=== PATIENT | male | born 1995 | race Asian ===

== ENCOUNTER 2017-09-04 12:52 | Inpatient (IN) | payer OTHER ==
[2017-09-04] MEDS ORDERED: IOHEXOL 350 MG/ML 10 ML VIAL (for RAD DIAG) IVCONTRAST ONE (12:53)
[2017-09-04 13:17] VITALS: BP 130/58; PULSE 116; RESP 16; TEMP 99.4; O2SAT 99
[2017-09-04 15:59] LABS: AUTOMATED NEUTROPHIL # 7.9 TH/MM3 (1.8-7.7); BASOPHIL # 0.1 TH/MM3 (0-0.2); BASOPHIL % 0.9 % (0.0-2.0); EOSINOPHIL # 0.3 TH/MM3 (0-0.4); EOSINOPHIL % 2.2 % (0.0-4.0); HEMATOCRIT 39.9 % (39.0-51.0); HEMOGLOBIN 12.8 GM/DL (13.0-17.0); LYMPHOCYTE # 2.2 TH/MM3 (1.0-4.8); MEAN CORPUSCULAR HEMOGLOBIN 24.4 PG (27.0-34.0); MEAN CORPUSCULAR HGB CONC 32.1 % (32.0-36.0); MEAN PLATELET VOLUME 7.8 FL (7.0-11.0); MONO % 8.7 % (0.0-8.0); NEUT % 69.2 % (16.0-70.0); PLATELET COUNT 361 TH/MM3 (150-450); RED BLOOD COUNT 5.26 MIL/MM3 (4.50-5.90); RED CELL DISTRIBUTION WIDTH 16.5 % (11.6-17.2); WHITE BLOOD COUNT 11.5 TH/MM3 (4.0-11.0)
[2017-09-04 16:12] LABS: BILIRUBIN, URINE NEG (NEG); BLOOD, URINE NEG (NEG); GLUCOSE,URINE NEG (NEG); KETONE, URINE NEG (NEG); NITRITE,URINE NEG (NEG); SQUAMOUS EPITHELIAL CELL URINE <1 /hpf (0-5); URINE COLOR YELLOW (YELLW/STRAW); URINE LEUKOCYTE ESTERASE NEG (NEG)
[2017-09-04 16:21] LABS: ALBUMIN 3.1 GM/DL (3.4-5.0); AST (GOT) 14 U/L (15-37); BICARBONATE 28.5 MEQ/L (21.0-32.0); BLOOD UREA NITROGEN 11 MG/DL (7-18); CALCIUM 9.2 MG/DL (8.5-10.1); CHLORIDE 101 MEQ/L (98-107); CREATININE 1.03 MG/DL (0.60-1.30); GLOMERULAR FILTRATION RATE 89 ML/MIN (>89); GLUCOSE,RANDOM 82 MG/DL (74-106); SODIUM (NA) 137 MEQ/L (136-145)
[2017-09-04 16:24] LABS: ALKALINE PHOSPHATASE 82 U/L (45-117); ALT (GPT) 13 U/L (12-78); TOTAL BILIRUBIN ADULT 1.2 MG/DL (0.2-1.0); TOTAL PROTEIN 9.7 GM/DL (6.4-8.2)
[2017-09-04] MEDS ORDERED: SODIUM CHLOR 0.9% 1000 ML INJ 1,000 ML IV ONE (18:00)
[2017-09-04] MEDS ORDERED: ONDANSETRON HCL 4 MG/2 ML VIAL IV PUSH ONE (18:00)
[2017-09-04] MEDS ORDERED: KETOROLAC TROMETHAMINE 30 MG/ML (IVP) VIAL IV PUSH ONE (18:00)
[2017-09-04] MEDS ORDERED: MORPHINE SULFATE 2 MG/ML INJ IV PUSH ONE (18:00)
--- NOTE | 2017-09-04 18:10 | PD ---
HPI Chief Complaint: Abdominal Pain Time Seen by Provider: 17:54 Travel History International Travel<30 days: No Contact w/Intl Traveler<30days: No Traveled to known affect area: No History of Present Illness HPI The patient is a 22-year-old male who presents emergency department for right lower quadrant abdominal pain. The patient states the pain started yesterday, initially was intermittent, now is constant with palpation and certain types of movement. The patient states if he holds still the pain will resolve. He denies any nausea, vomiting, anorexia, or diarrhea. The pain is located right lower quadrant, moderate, nonradiating, worse with palpation. The patient's last meal was this morning, breakfast. He denies any previous history of abdominal surgeries. The patient denies any dysuria, frequency, urgency, or hematuria. FORMERLY [facility] Past Medical History Medical History: Denies Significant Hx Past Surgical History Other Surgery: Yes (FISSURES IN RECTUM) Social History Alcohol Use: No Tobacco Use: No Substance Use: No Allergies-Medications (Allergen,Severity, Reaction): Coded Allergies: No Known Allergies (Unverified , 09/04/17) Reported Meds & Prescriptions Reported Meds & Active Scripts Active No Active Prescriptions or Reported Medications Review of Systems Except as stated in HPI: all other systems reviewed are Neg General / Constitutional: No: Fever HENT: No: Headaches Cardiovascular: No: Chest Pain or Discomfort Respiratory: No: Shortness of Breath Gastrointestinal: Positive: Abdominal Pain, No: Nausea, Vomiting, Diarrhea, Constipation, Loss of Appetite Genitourinary: No: Dysuria, Hematuria Musculoskeletal: No: Myalgias Physical Exam Narrative GENERAL: Awake, alert, 22 old male who appears his stated age and is in no acute respiratory distress. SKIN: Focused skin assessment warm/dry. HEAD: Atraumatic. Normocephalic. EYES: No injection or drainage. ENT: No nasal bleeding or discharge. Mucous membranes pink and moist. NECK: Trachea midline. No JVD. CARDIOVASCULAR: Regular rate and rhythm. No murmur appreciated. RESPIRATORY: No accessory muscle use. Clear to auscultation. Breath sounds equal bilaterally. GASTROINTESTINAL: Abdomen soft, tender to palpation right lower quadrant. Positive McBurney's. Patient was unable to hop on the right leg. Negative obturator. Negative Rovsing. MUSCULOSKELETAL: No obvious deformities. No clubbing. No cyanosis. No edema. NEUROLOGICAL: Awake and alert. No obvious cranial nerve deficits. Motor grossly within normal limits. Normal speech. PSYCHIATRIC: Appropriate mood and affect; insight and judgment normal. Data Data Last Documented VS Vital Signs Date Time Temp Pulse Resp B/P (MAP) Pulse Ox O2 Delivery O2 Flow Rate FiO2 09/04/17 13:17 99.4 116 16 130/58 (82) 99 Orders Orders Complete Blood Count With Diff (09/04/17 13:18) Comprehensive Metabolic Panel (09/04/17 13:18) Lipase (09/04/17 13:18) Urinalysis - C+S If Indicated (09/04/17 13:18) Ct Abd/Pel W Iv Contrast(Rout) (09/04/17 ) Ketorolac Inj (Toradol Inj) (09/04/17 18:00) Morphine Inj (Morphine Inj) (09/04/17 18:00) Ondansetron Inj (Zofran Inj) (09/04/17 18:00) Sodium Chlor 0.9% 1000 Ml Inj (Ns 1000 M (09/04/17 18:00) NPO (09/04/17 17:58) Oral Contrast - Adult (09/04/17 18:18) Diatrizoate Liq ( Gastroview Liq) (09/04/17 18:21) Iohexol 350 Inj (Omnipaque 350 Inj) (09/04/17 12:53) Piperacil-Tazo 4.5 Gm Premix (Zosyn 4.5 (09/04/17 21:00) Admit Order (Ed Use Only) (09/04/17 21:33) Admit To Inpatient (09/04/17 ) Vital Signs (Adult) Q4H (09/04/17 21:34) Activity Oob Ad Catherine (09/04/17 21:34) Air Conditioning Unit Assembler / Telemetry .CONTINUOUS (09/04/17 21:34) Diet Npo (09/05/17 Breakfast) Sodium Chlor 0.9% 1000 Ml Inj (Ns 1000 M (09/04/17 21:34) Sodium Chloride 0.9% Flush (Ns Flush) (09/04/17 21:45) Sodium Chloride 0.9% Flush (Ns Flush) (09/05/17 09:00) Ondansetron Inj (Zofran Inj) (09/04/17 21:45) Basic Metabolic Panel (Bmp) (09/05/17 06:00) Complete Blood Count With Diff (09/05/17 06:00) Case Management Consult (09/04/17 21:34) Naloxone Inj (Narcan Inj) (09/04/17 21:45) Inpatient Certification (09/04/17 ) Labs Laboratory Tests Test 09/04/17 15:01 White Blood Count 11.5 TH/MM3 Red Blood Count 5.26 MIL/MM3 Hemoglobin 12.8 GM/DL Hematocrit 39.9 % Mean Corpuscular Volume 76.0 FL Mean Corpuscular Hemoglobin 24.4 PG Mean Corpuscular Hemoglobin Concent 32.1 % Red Cell Distribution Width 16.5 % Platelet Count 361 TH/MM3 Mean Platelet Volume 7.8 FL Neutrophils (%) (Auto) 69.2 % Lymphocytes (%) (Auto) 19.0 % Monocytes (%) (Auto) 8.7 % Eosinophils (%) (Auto) 2.2 % Basophils (%) (Auto) 0.9 % Neutrophils # (Auto) 7.9 TH/MM3 Lymphocytes # (Auto) 2.2 TH/MM3 Monocytes # (Auto) 1.0 TH/MM3 Eosinophils # (Auto) 0.3 TH/MM3 Basophils # (Auto) 0.1 TH/MM3 CBC Comment DIFF FINAL Differential Comment Urine Color YELLOW Urine Turbidity CLEAR Urine pH 6.0 Urine Specific [place] 1.010 Urine Protein NEG mg/dL Urine Glucose (UA) NEG mg/dL Urine Ketones NEG mg/dL Urine Occult Blood NEG Urine Nitrite NEG Urine Bilirubin NEG Urine Urobilinogen LESS THAN 2.0 MG/DL Urine Leukocyte Esterase NEG Urine WBC LESS THAN 1 /hpf Urine Squamous Epithelial Cells <1 /hpf Microscopic Urinalysis Comment CULT NOT INDICATED Blood Urea Nitrogen 11 MG/DL Creatinine 1.03 MG/DL Random Glucose 82 MG/DL Total Protein 9.7 GM/DL Albumin 3.1 GM/DL Calcium Level 9.2 MG/DL Alkaline Phosphatase 82 U/L Aspartate Amino Transf (AST/SGOT) 14 U/L Alanine Aminotransferase (ALT/SGPT) 13 U/L Total Bilirubin 1.2 MG/DL Sodium Level 137 MEQ/L Potassium Level 3.7 MEQ/L Chloride Level 101 MEQ/L Carbon Dioxide Level 28.5 MEQ/L Anion Gap 8 MEQ/L Estimat Glomerular Filtration Rate 89 ML/MIN Lipase 57 U/L [facility] Medical Decision Making Medical Screen Exam Complete: Yes Emergency Medical Condition: Yes Medical Record Reviewed: Yes Interpretation(s) Laboratory Tests Test 09/04/17 15:01 White Blood Count 11.5 TH/MM3 Red Blood Count 5.26 MIL/MM3 Hemoglobin 12.8 GM/DL Hematocrit 39.9 % Mean Corpuscular Volume 76.0 FL Mean Corpuscular Hemoglobin 24.4 PG Mean Corpuscular Hemoglobin Concent 32.1 % Red Cell Distribution Width 16.5 % Platelet Count 361 TH/MM3 Mean Platelet Volume 7.8 FL Neutrophils (%) (Auto) 69.2 % Lymphocytes (%) (Auto) 19.0 % Monocytes (%) (Auto) 8.7 % Eosinophils (%) (Auto) 2.2 % Basophils (%) (Auto) 0.9 % Neutrophils # (Auto) 7.9 TH/MM3 Lymphocytes # (Auto) 2.2 TH/MM3 Monocytes # (Auto) 1.0 TH/MM3 Eosinophils # (Auto) 0.3 TH/MM3 Basophils # (Auto) 0.1 TH/MM3 CBC Comment DIFF FINAL Differential Comment Urine Color YELLOW Urine Turbidity CLEAR Urine pH 6.0 Urine Specific [place] 1.010 Urine Protein NEG mg/dL Urine Glucose (UA) NEG mg/dL Urine Ketones NEG mg/dL Urine Occult Blood NEG Urine Nitrite NEG Urine Bilirubin NEG Urine Urobilinogen LESS THAN 2.0 MG/DL Urine Leukocyte Esterase NEG Urine WBC LESS THAN 1 /hpf Urine Squamous Epithelial Cells <1 /hpf Microscopic Urinalysis Comment CULT NOT INDICATED Blood Urea Nitrogen 11 MG/DL Creatinine 1.03 MG/DL Random Glucose 82 MG/DL Total Protein 9.7 GM/DL Albumin 3.1 GM/DL Calcium Level 9.2 MG/DL Alkaline Phosphatase 82 U/L Aspartate Amino Transf (AST/SGOT) 14 U/L Alanine Aminotransferase (ALT/SGPT) 13 U/L Total Bilirubin 1.2 MG/DL Sodium Level 137 MEQ/L Potassium Level 3.7 MEQ/L Chloride Level 101 MEQ/L Carbon Dioxide Level 28.5 MEQ/L Anion Gap 8 MEQ/L Estimat Glomerular Filtration Rate 89 ML/MIN Lipase 57 U/L Last Impressions Abdomen/Pelvis CT 09/04/17 0000 Signed Impressions: Service Date/Time: Monday, September 04, 2017 19:58 - CONCLUSION: 1. Markedly abnormal inflammatory change in the right lower quadrant associated with a 4 cm abscess/phlegmonous mass and associated thickening and inflammatory change around the cecum and terminal ileum. Differential diagnosis includes a appendicitis with appendiceal abscess or possibly localized perforation versus complicated distal terminal ileum Crohn's disease and associated abscess. I would favor perforated appendicitis. Rico Gonzales MD Differential Diagnosis Differential diagnosis includes appendicitis, mesenteric lymphadenitis, constipation, diverticulitis, nephrolithiasis, pyelonephritis, muscle strain. Narrative Course IV was established, labs are drawn and sent, the patient was placed on cardiac telemetry monitoring and continuous pulse oximetry monitoring. CT of the abdomen and pelvis with oral and IV contrast was ordered. The patient was administered Toradol, morphine, Zofran, and IV fluids. The patient was kept nothing by mouth in the emergency department. Patient's white count is mildly elevated. Temperature is 99.3. CT reveals possible perforated appendicitis with abscess versus inflammatory changes from Crohn's disease. The patient was administered Zosyn 4.5 g intravenously. The on-call medical service was paged for admission. The patient may need evaluation by interventional radiology to place a drain if the abscess is large enough. Physician Communication Physician Communication The on-call medical service was paged for admission. I discussed the patient with Dr. Rodgers who agrees with admission. Diagnosis Primary Impression: Acute appendicitis with perforation and peritoneal abscess Admitting Information Admitting Physician Requests: Admit Scripts No Active Prescriptions or Reported Meds Condition: Stable Faheem Foley MD Sep 04, 2017 18:10
[2017-09-04] MEDS ORDERED: DIATRIZOATE MEGLUM/DIATRIZOATE SOD 9 ML CUP ONE (18:21)
--- NOTE | 2017-09-04 20:36 | RADRPT ---
EXAM DATE/TIME: 09/04/2017 19:58 [facility] COMPARISON: No previous studies available for comparison. INDICATIONS : Right lower quadrant pain. IV CONTRAST: 96 cc Omnipaque 350 (iohexol) IV ORAL CONTRAST: Prescribed oral contrast ingested. RADIATION DOSE: 4.52 CTDIvol (mGy) MEDICAL HISTORY : None SURGICAL HISTORY : None. ENCOUNTER: Initial ACUITY: 1 day PAIN SCALE: 6/10 LOCATION: cranial TECHNIQUE: Volumetric scanning of the abdomen and pelvis was performed. Using automated exposure control and ad justment of the mA and/or kV according to patient size, radiation dose was kept as low as reasonably achievable to obtain optimal diagnostic quality images. DICOM format image data is available electro nically for review and comparison. FINDINGS: There is extensive abnormal inflammatory change in the right lower quadrant around the cecum, termina l ileum and expected location of the appendix. There is a 4 cm x 3 cm phlegmonous mass/abscess in the right lower quadrant. This process cannot be from the appendix. Differential diagnosis inc ludes appendicitis with associated appendiceal abscess. Cannot exclude a distal terminal ileum Crohn' s disease associated with abscess. There is no bowel obstruction. There is no free intraperitoneal air. No acute findings in the liver, spleen, adrenals, kidneys or pancreas. CONCLUSION: 1. Markedly abnormal inflammatory change in the right lower quadrant associated with a 4 cm abscess/p hlegmonous mass and associated thickening and inflammatory change around the cecum and terminal ileum . Differential diagnosis includes a appendicitis with appendiceal abscess or possibly localized perfo ration versus complicated distal terminal ileum Crohn's disease and associated abscess. I would favor perforated appendicitis. Rico Gonzales MD on September 04, 2017 at 20:29 Board Certified Radiologist. This report was verified electronically.
[2017-09-04] MEDS ORDERED: PIPERACIL-TAZO 4.5 GM PREMIX 100 ML IV ONE (21:00)
[2017-09-04] MEDS ORDERED: SODIUM CHLORIDE 0.9% FLUSH 10 ML FLUSH IV FLUSH PRN (21:45)
[2017-09-04] MEDS ORDERED: ONDANSETRON HCL 4 MG/2 ML VIAL IVP PRN (21:45)
[2017-09-04] MEDS ORDERED: NALOXONE HCL 0.4 MG/ML AMP IV PUSH PRN (21:45)
[2017-09-04] MEDS: SODIUM CHLOR 0.9% 1000 ML INJ 1,000 ML IV SCH (22:01)
[2017-09-05] VITALS (9 sets, daily range): BP systolic 102–122; BP diastolic 55–81; PULSE 66–107; RESP 16–20; TEMP 97.2–99; O2SAT 98–100
[2017-09-05] MEDS: PIPERACIL-TAZO 4.5 GM PREMIX 100 ML IV SCH ×4 (03:00→21:32)
[2017-09-05 05:46] LABS: AUTOMATED NEUTROPHIL # 7.2 TH/MM3 (1.8-7.7); BASOPHIL # 0.1 TH/MM3 (0-0.2); BASOPHIL % 1.1 % (0.0-2.0); EOSINOPHIL # 0.4 TH/MM3 (0-0.4); EOSINOPHIL % 3.8 % (0.0-4.0); HEMATOCRIT 34.8 % (39.0-51.0); HEMOGLOBIN 11.2 GM/DL (13.0-17.0); LYMPH % 14.3 % (9.0-44.0); LYMPHOCYTE # 1.5 TH/MM3 (1.0-4.8); MEAN CELL VOLUME 75.1 FL (80.0-100.0); MEAN CORPUSCULAR HEMOGLOBIN 24.2 PG (27.0-34.0); MEAN CORPUSCULAR HGB CONC 32.2 % (32.0-36.0); MEAN PLATELET VOLUME 7.3 FL (7.0-11.0); NEUT % 70.8 % (16.0-70.0); PLATELET COUNT 274 TH/MM3 (150-450); RED BLOOD COUNT 4.63 MIL/MM3 (4.50-5.90); RED CELL DISTRIBUTION WIDTH 16.4 % (11.6-17.2); WHITE BLOOD COUNT 10.2 TH/MM3 (4.0-11.0)
[2017-09-05 06:20] LABS: BICARBONATE 25.3 MEQ/L (21.0-32.0); CALCIUM 8.1 MG/DL (8.5-10.1); CREATININE 0.91 MG/DL (0.60-1.30)
[2017-09-05] MEDS: SODIUM CHLOR 0.9% 1000 ML INJ 1,000 ML IV SCH ×2 (07:40→17:21)
--- NOTE | 2017-09-05 08:26 | HHI.HP ---
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 The pain started 2 days ago and was intermittent. It became constant and he went [facility]. He was referred to the emergency department for further evaluation. He states that if he remains still, there is no pain. The pain worsens with movement. He denies fever, chills, night sweats. Denies nausea, vomiting, diarrhea, constipation. Review of Systems Constitutional: DENIES: Fever, Chills, Night Sweats Eyes: DENIES: Blurred vision, Vision loss Ears, nose, mouth, throat: DENIES: Hearing loss Respiratory: DENIES: Cough, Wheezing, Sputum production, Shortness of breath Cardiovascular: DENIES: Chest pain, Palpitations, Dyspnea on Exertion, Lower Extremity Edema Gastrointestinal: COMPLAINS OF: Abdominal pain, DENIES: Constipation, Diarrhea , Nausea, Vomiting Genitourinary: DENIES: Urinary frequency, Urinary incontinence, Urgency, Hematuria, Dysuria, Nocturia Musculoskeletal: DENIES: Joint pain, Muscle aches Integumentary: DENIES: Pruritus, Rash Hematologic/lymphatic: DENIES: Bruising Neurologic: DENIES: Headache Past Family Social History Past Medical History Denies Past Surgical History Rectal surgery for fissures Reported Medications None Allergies: Coded Allergies: No Known Allergies (Unverified , 09/04/17) Family History The patient denies family medical history including diabetes, cancer, heart disease. Social History Denies alcohol, tobacco, or illicit drug use. Physical Exam Vital Signs Vital Signs Date Time Temp Pulse Resp B/P (MAP) Pulse Ox O2 Delivery O2 Flow Rate FiO2 09/05/17 07:40 16 09/05/17 07:40 99.0 107 16 114/55 (74) 100 Room Air 09/05/17 00:06 69 16 102/56 (71) 98 09/04/17 13:17 99.4 116 16 130/58 (82) 99 Physical Exam GENERAL: This is a well-nourished, well-developed patient, in no apparent distress. SKIN: No rashes, ecchymoses or lesions. Cool and dry. HEAD: Atraumatic. Normocephalic. No temporal or scalp tenderness. EYES: Pupils equal round and reactive. Extraocular motions intact. No scleral icterus. No injection or drainage. ENT: Throat without erythema, tonsillar hypertrophy or exudate. Uvula midline. Airway patent. NECK: Trachea midline. No JVD or lymphadenopathy. Supple, nontender, no meningeal signs. CARDIOVASCULAR: Regular rate and rhythm without murmurs, gallops, or rubs. RESPIRATORY: Clear to auscultation. Breath sounds equal bilaterally. No wheezes , rales, or rhonchi. GASTROINTESTINAL: Abdomen soft, nondistended. Tenderness to palpation in the right lower quadrant without rebound or guarding. MUSCULOSKELETAL: Extremities without clubbing, cyanosis, or edema. No joint tenderness, effusion, or edema noted. No calf tenderness. NEUROLOGICAL: Awake and alert. Motor and sensory grossly within normal limits. Normal speech. Laboratory Laboratory Tests Test 09/04/17 15:01 09/05/17 05:25 White Blood Count 11.5 10.2 Red Blood Count 5.26 4.63 Hemoglobin 12.8 11.2 Hematocrit 39.9 34.8 Mean Corpuscular Volume 76.0 75.1 Mean Corpuscular Hemoglobin 24.4 24.2 Mean Corpuscular Hemoglobin Concent 32.1 32.2 Red Cell Distribution Width 16.5 16.4 Platelet Count 361 274 Mean Platelet Volume 7.8 7.3 Neutrophils (%) (Auto) 69.2 70.8 Lymphocytes (%) (Auto) 19.0 14.3 Monocytes (%) (Auto) 8.7 10.0 Eosinophils (%) (Auto) 2.2 3.8 Basophils (%) (Auto) 0.9 1.1 Neutrophils # (Auto) 7.9 7.2 Lymphocytes # (Auto) 2.2 1.5 Monocytes # (Auto) 1.0 1.0 Eosinophils # (Auto) 0.3 0.4 Basophils # (Auto) 0.1 0.1 CBC Comment DIFF FINAL DIFF FINAL Differential Comment Urine Color YELLOW Urine Turbidity CLEAR Urine pH 6.0 Urine Specific [place] 1.010 Urine Protein NEG Urine Glucose (UA) NEG Urine Ketones NEG Urine Occult Blood NEG Urine Nitrite NEG Urine Bilirubin NEG Urine Urobilinogen LESS THAN 2.0 Urine Leukocyte Esterase NEG Urine WBC LESS THAN 1 Urine Squamous Epithelial Cells <1 Microscopic Urinalysis Comment CULT NOT INDICATED Blood Urea Nitrogen 11 10 Creatinine 1.03 0.91 Random Glucose 82 75 Total Protein 9.7 Albumin 3.1 Calcium Level 9.2 8.1 Alkaline Phosphatase 82 Aspartate Amino Transf (AST/SGOT) 14 Alanine Aminotransferase (ALT/SGPT) 13 Total Bilirubin 1.2 Sodium Level 137 139 Potassium Level 3.7 4.0 Chloride Level 101 105 Carbon Dioxide Level 28.5 25.3 Anion Gap 8 9 Estimat Glomerular Filtration Rate 89 103 Lipase 57 Result Diagram: 09/05/17 0525 09/05/17 0525 Imaging Last Impressions Abdomen/Pelvis CT 09/04/17 0000 Signed Impressions: Service Date/Time: Monday, September 04, 2017 19:58 - CONCLUSION: 1. Markedly abnormal inflammatory change in the right lower quadrant associated with a 4 cm abscess/phlegmonous mass and associated thickening and inflammatory change around the cecum and terminal ileum. Differential diagnosis includes a appendicitis with appendiceal abscess or possibly localized perforation versus complicated distal terminal ileum Crohn's disease and associated abscess. I would favor perforated appendicitis. MD Guy Jenkins VTE Risk Assessment Caprini VTE Risk Assessment: No/Low Risk (score <= 1) Caprini Risk Assessment Model Point Value = 1 Point Value = 2 Point Value = 3 Point Value = 5 Age 41-60 Minor surgery BMI > 25 kg/m2 Swollen legs Varicose veins or History of unexplained or recurrent spontaneous Oral contraceptives or hormone replacement Sepsis (< 1 month) Serious lung disease, including pneumonia (< 1 month) Abnormal pulmonary function Acute myocardial infarction Congestive heart failure (< 1 month) History of inflammatory bowel disease Medical patient at bed rest Age 61-74 Arthroscopic surgery Major open surgery (> 45 min) Laparoscopic surgery (> 45 min) Malignancy Confined to bed (> 72 hours) Immobilizing plaster cast Central venous access Age >= 75 History of VTE Family history of VTE Factor V Leiden Prothrombin [id number] Lupus anticoagulant Anticardiolipin antibodies Elevated serum homocysteine Heparin-induced thrombocytopenia Other congenital or acquired thrombophilia Stroke (< 1 month) Elective arthroplasty Hip, pelvis, or leg fracture Acute spinal cord injury (< 1 month) Prophylaxis Regimen Total Risk Factor Score Risk Level Prophylaxis Regimen 0-1 Low Early ambulation 2 Moderate Order ONE of the following: *Sequential Compression Device (SCD) *Heparin 5000 units SQ BID 3-4 Higher Order ONE of the following medications: *Heparin 5000 units SQ TID *Enoxaparin/Lovenox 40 mg SQ daily (WT < 150 kg, CrCl > 30 mL/min) *Enoxaparin/Lovenox 30 mg SQ daily (WT < 150 kg, CrCl > 10-29 mL/min) *Enoxaparin/Lovenox 30 mg SQ BID (WT < 150 kg, CrCl > 30 mL/min) AND/OR *Sequential Compression Device (SCD) 5 or more Highest Order ONE of the following medications: *Heparin 5000 units SQ TID (Preferred with Epidurals) *Enoxaparin/Lovenox 40 mg SQ daily (WT < 150 kg, CrCl > 30 mL/min) *Enoxaparin/Lovenox 30 mg SQ daily (WT < 150 kg, CrCl > 10-29 mL/min) *Enoxaparin/Lovenox 30 mg SQ BID (WT < 150 kg, CrCl > 30 mL/min) AND *Sequential Compression Device (SCD) Assessment and Plan Assessment and Plan 1. Acute appendicitis with perforation and abscess: Continue IV antibiotics. Vital signs are stable. Patient is afebrile. Interventional radiology has been consulted for drainage of the abscess. Will consult general surgery for further recommendations. I have placed a call to the general surgeon documentation liaison. 2. DVT prophylaxis: SCDsCLAUDE. Avoid chemical prophylaxis in anticipation of surgical intervention. Andi Navas MD Sep 05, 2017 08:26
[2017-09-05] MEDS ORDERED: MORPHINE SULFATE 2 MG/ML INJ IV PUSH PRN (08:30)
[2017-09-05] MEDS: SODIUM CHLORIDE 0.9% FLUSH 10 ML FLUSH IV FLUSH SCH ×2 (09:00→21:00)
--- NOTE | 2017-09-05 09:10 | RADRPT ---
EXAM DATE/TIME: 09/05/2017 00:00 [facility] COMPARISON: CT ABDOMEN & PELVIS W CONTRAST, September 04, 2017, 19:58. CT examination of the abdomen and pelvis Phani 2017 . INDICATIONS : Abdominal abscess. There is no drainable collection evident on the patient's CT exam. Tejas Cope MD on September 05, 2017 at 9:06 Board Certified Radiologist. This report was verified electronically.
--- NOTE | 2017-09-05 20:34 | PD.CONS ---
HPI Service General Surgery Consult Requested By Dr. Navas Reason for Consult intrabdominal abscess Primary Care Physician No Primary Care Physician History of Present Illness 22 yo M developed severe RLQ abdominal pain two days ago which did not improve. He presented to the ED and was found to have severe tenderness and CT showing intraabdominal abscess possibly secondary to appendicitis or IBD. He denies N/V /F/C. No family h/o IBD. A couple of times a month he has heartburn and diarrhea if he eats spicy foods but otherwise he has no other GI symptoms. No blood in stool. Review of Systems Constitutional: DENIES: Fever, Chills Eyes: DENIES: Eye inflammation, Eye pain Ears, nose, mouth, throat: DENIES: Oral lesions, Throat pain Respiratory: DENIES: Cough, Wheezing Gastrointestinal: COMPLAINS OF: Abdominal pain, Diarrhea Musculoskeletal: DENIES: Back pain, Neck pain Integumentary: DENIES: Pruritus, Rash Neurologic: DENIES: Paresthesias, Seizures Past Family Social History Past Medical History None Past Surgical History surgery for anal fissure Reported Medications none Allergies: Coded Allergies: No Known Allergies (Unverified , 09/04/17) Active Ordered Medications Current Medications Medications (Trade) Dose Ordered Sig/Prudence Route Start Time Stop Time Status Last Admin Sodium Chloride 1,000 ml @ 100 mls/hr Q10H IV 09/04/17 21:34 09/05/17 17:21 (NS Flush) 2 ml UNSCH PRN IV FLUSH 09/04/17 21:45 (NS Flush) 2 ml BID IV FLUSH 09/05/17 09:00 (Zofran Inj) 4 mg Q6H PRN IVP 09/04/17 21:45 (Narcan Inj) 0.4 mg UNSCH PRN IV PUSH 09/04/17 21:45 Piperacillin Sod/ Tazobactam Sod 100 ml @ 200 mls/hr Q6H IV 09/05/17 03:00 09/05/17 14:56 (Morphine Inj) 2 mg Q4H PRN IV PUSH 09/05/17 08:30 Family History noncontributory Social History No ETOH, tobacco or drug use. He is in school. Physical Exam Vital Signs Vital Signs Date Time Temp Pulse Resp B/P (MAP) Pulse Ox O2 Delivery O2 Flow Rate FiO2 09/05/17 17:30 97.7 66 18 106/59 (75) 99 09/05/17 17:00 97.8 78 16 122/81 (95) 99 09/05/17 13:38 98.4 103 113/64 (80) 100 Room Air 09/05/17 12:51 98.5 85 19 121/63 (82) 99 09/05/17 10:49 98.1 77 20 115/67 (83) 100 09/05/17 07:40 16 09/05/17 07:40 99.0 107 16 114/55 (74) 100 Room Air 09/05/17 00:06 69 16 102/56 (71) 98 Physical Exam GENERAL: Awake and alert. No acute distress. Cooperative. HEAD: Normocephalic. Atraumatic. EYES: Pupils equal round and reactive to light bilaterally. No scleral icterus. ENT: Moist oral mucosa. NECK: Trachea midline. CHEST: Lungs clear to auscultation bilaterally with no wheezing or rhonchi. No respiratory distress. CARDIOVASCULAR: Regular rate and rhythm. ABDOMEN: Mild distention. Severe ttp with rebound in right midabdomen where fullness is also present. Otherwise soft ntd EXTREMITIES: No cyanosis or edema. SKIN: Warm, dry, nonjaundiced. Laboratory Laboratory Tests Test 09/05/17 05:25 White Blood Count 10.2 Red Blood Count 4.63 Hemoglobin 11.2 Hematocrit 34.8 Mean Corpuscular Volume 75.1 Mean Corpuscular Hemoglobin 24.2 Mean Corpuscular Hemoglobin Concent 32.2 Red Cell Distribution Width 16.4 Platelet Count 274 Mean Platelet Volume 7.3 Neutrophils (%) (Auto) 70.8 Lymphocytes (%) (Auto) 14.3 Monocytes (%) (Auto) 10.0 Eosinophils (%) (Auto) 3.8 Basophils (%) (Auto) 1.1 Neutrophils # (Auto) 7.2 Lymphocytes # (Auto) 1.5 Monocytes # (Auto) 1.0 Eosinophils # (Auto) 0.4 Basophils # (Auto) 0.1 CBC Comment DIFF FINAL Differential Comment Blood Urea Nitrogen 10 Creatinine 0.91 Random Glucose 75 Calcium Level 8.1 Sodium Level 139 Potassium Level 4.0 Chloride Level 105 Carbon Dioxide Level 25.3 Anion Gap 9 Estimat Glomerular Filtration Rate 103 Result Diagram: 09/05/17 0525 09/05/17 0525 Imaging Last Impressions Abdomen/Pelvis CT 09/04/17 0000 Signed Impressions: Service Date/Time: Monday, September 04, 2017 19:58 - CONCLUSION: 1. Markedly abnormal inflammatory change in the right lower quadrant associated with a 4 cm abscess/phlegmonous mass and associated thickening and inflammatory change around the cecum and terminal ileum. Differential diagnosis includes a appendicitis with appendiceal abscess or possibly localized perforation versus complicated distal terminal ileum Crohn's disease and associated abscess. I would favor perforated appendicitis. Rico Gonzales MD Assessment and Plan Assessment and Plan 22 yo M RLQ abscess. Based on history this is most likely phlegmon/abscess associated with appendicitis. I recommend nonoperative management with IV antibiotics and NPO status at this time. Will re-evaluate tomorrow. If he improves without an operation he may require interval appendectomy in about two months. Bruce Victoria MD Sep 05, 2017 20:34
[2017-09-06] VITALS: BP 108/58; PULSE 67; RESP 20; TEMP 97.8; O2SAT 99
[2017-09-06] MEDS: SODIUM CHLOR 0.9% 1000 ML INJ 1,000 ML IV SCH ×3 (03:34→23:34)
[2017-09-06] MEDS: PIPERACIL-TAZO 4.5 GM PREMIX 100 ML IV SCH ×4 (03:42→20:22)
[2017-09-06 08:00] VITALS: BP 104/57; PULSE 70; RESP 17; TEMP 97.1; O2SAT 99
[2017-09-06 08:33] LABS: AUTOMATED NEUTROPHIL # 5.1 TH/MM3 (1.8-7.7); BASOPHIL # 0.1 TH/MM3 (0-0.2); BASOPHIL % 1.3 % (0.0-2.0); EOSINOPHIL # 0.4 TH/MM3 (0-0.4); HEMATOCRIT 32.8 % (39.0-51.0); HEMOGLOBIN 10.6 GM/DL (13.0-17.0); LYMPH % 17.1 % (9.0-44.0); LYMPHOCYTE # 1.3 TH/MM3 (1.0-4.8); MEAN CELL VOLUME 75.2 FL (80.0-100.0); MEAN CORPUSCULAR HEMOGLOBIN 24.3 PG (27.0-34.0); MEAN CORPUSCULAR HGB CONC 32.3 % (32.0-36.0); MEAN PLATELET VOLUME 7.9 FL (7.0-11.0); MONO % 9.5 % (0.0-8.0); MONOCYTE # 0.7 TH/MM3 (0-0.9); NEUT % 67.1 % (16.0-70.0); PLATELET COUNT 248 TH/MM3 (150-450); RED BLOOD COUNT 4.36 MIL/MM3 (4.50-5.90); WHITE BLOOD COUNT 7.7 TH/MM3 (4.0-11.0)
[2017-09-06 09:00] LABS: BICARBONATE 22.3 MEQ/L (21.0-32.0); CALCIUM 8.2 MG/DL (8.5-10.1)
[2017-09-06] MEDS: SODIUM CHLORIDE 0.9% FLUSH 10 ML FLUSH IV FLUSH SCH ×2 (09:00→20:22)
--- NOTE | 2017-09-06 10:45 | HHI.PR ---
Subjective Remarks Follow-up with appendicitis. Patient states that he feels okay today. Still having some pain with movement, but less than yesterday. No nausea, vomiting, diarrhea, constipation. Objective Vitals Vital Signs Date Time Temp Pulse Resp B/P (MAP) Pulse Ox O2 Delivery O2 Flow Rate FiO2 09/06/17 08:00 97.1 70 17 104/57 (73) 99 09/06/17 00:00 97.8 67 20 108/58 (75) 99 09/05/17 20:15 73 09/05/17 20:00 97.2 82 20 118/57 (77) 98 09/05/17 17:30 97.7 66 18 106/59 (75) 99 09/05/17 17:00 97.8 78 16 122/81 (95) 99 09/05/17 13:38 98.4 103 113/64 (80) 100 Room Air 09/05/17 12:51 98.5 85 19 121/63 (82) 99 09/05/17 10:49 98.1 77 20 115/67 (83) 100 I/O 09/05/17 09/05/17 09/05/17 09/06/17 09/06/17 09/06/17 07:00 15:00 23:00 07:00 15:00 23:00 Intake Total 1200 ml 0 ml Balance 1200 ml 0 ml Intake Oral 0 ml IV Total 1200 ml # Voids 1 1 0 # Bowel Movements 1 Result Diagram: 09/06/17 0807 09/06/17 0807 Imaging Last Impressions Abdomen/Pelvis CT 09/04/17 0000 Signed Impressions: Service Date/Time: Monday, September 04, 2017 19:58 - CONCLUSION: 1. Markedly abnormal inflammatory change in the right lower quadrant associated with a 4 cm abscess/phlegmonous mass and associated thickening and inflammatory change around the cecum and terminal ileum. Differential diagnosis includes a appendicitis with appendiceal abscess or possibly localized perforation versus complicated distal terminal ileum Crohn's disease and associated abscess. I would favor perforated appendicitis. Rico Gonzales MD Objective Remarks General: No acute distress. Heart: Regular rate and rhythm. No murmur. Lungs: Clear to auscultation bilaterally. No wheezes, rales, or rhonchi. Breathing is nonlabored. Abdomen: Soft, tender to palpation in the right upper quadrant, nondistended. Extremities: No lower extremity edema. Psych: Alert and oriented. Procedures None Urinary Catheter: No Vascular Central Line Catheter: No A/P Problem List: (1) Acute appendicitis with perforation and peritoneal abscess ICD Code: K35.3 - Acute appendicitis with localized peritonitis Status: Acute Assessment and Plan 1. Acute appendicitis with perforation and abscess: Continue IV antibiotics. Vital signs are stable. Patient is afebrile. Interventional radiology has been consulted for drainage of the abscess, but there was not enough fluid to drain. Appreciate general surgery recommendations. N.p.o. until cleared by surgery to advance diet. 2. DVT prophylaxis: CLAUDE Roy. Avoid chemical prophylaxis in anticipation of possible surgical intervention. Andi Navas MD Sep 06, 2017 10:45
[2017-09-06 12:00] VITALS: BP_SYST 105; BP_SYST 122; BP_DIAS 59; BP_DIAS 67; PULSE 68; PULSE 99; RESP 17; RESP 18; TEMP 97.8; TEMP 98.9; O2SAT 91; O2SAT 99
[2017-09-06 16:00] VITALS: BP 104/60; PULSE 65; RESP 19; TEMP 98.5; O2SAT 100
--- NOTE | 2017-09-06 16:18 | HHI.PR ---
Subjective Subjective Notes His pain is better. He had a BM this morning. Feels hungry. Objective Vitals/I&O Vital Signs Date Time Temp Pulse Resp B/P (MAP) Pulse Ox O2 Delivery O2 Flow Rate FiO2 09/06/17 12:00 97.8 68 18 105/59 (74) 99 09/05/17 13:38 Room Air Labs Laboratory Tests Test 09/06/17 08:07 White Blood Count 7.7 Red Blood Count 4.36 Hemoglobin 10.6 Hematocrit 32.8 Mean Corpuscular Volume 75.2 Mean Corpuscular Hemoglobin 24.3 Mean Corpuscular Hemoglobin Concent 32.3 Red Cell Distribution Width 16.0 Platelet Count 248 Mean Platelet Volume 7.9 Neutrophils (%) (Auto) 67.1 Lymphocytes (%) (Auto) 17.1 Monocytes (%) (Auto) 9.5 Eosinophils (%) (Auto) 5.0 Basophils (%) (Auto) 1.3 Neutrophils # (Auto) 5.1 Lymphocytes # (Auto) 1.3 Monocytes # (Auto) 0.7 Eosinophils # (Auto) 0.4 Basophils # (Auto) 0.1 CBC Comment DIFF FINAL Differential Comment Blood Urea Nitrogen 11 Creatinine 1.00 Random Glucose 60 Calcium Level 8.2 Sodium Level 138 Potassium Level 3.9 Chloride Level 105 Carbon Dioxide Level 22.3 Anion Gap 11 Estimat Glomerular Filtration Rate 93 Narrative Exam NAD, comfortable in bed Abd: moderate RLQ ttp, fullness. Otherwise soft ntd A/P Assessment and Plan 22 yo M with abscess likely periappendiceal. Improving with IV antibiotics. Start clears. Julien,Bruce TORRES Sep 06, 2017 16:18
[2017-09-06 20:00] VITALS: BP 107/67; PULSE 65; RESP 20; TEMP 98.1; O2SAT 100
[2017-09-07] VITALS: BP 103/61; PULSE 52; RESP 20; TEMP 98.5; O2SAT 100
[2017-09-07] MEDS: PIPERACIL-TAZO 4.5 GM PREMIX 100 ML IV SCH ×3 (03:18→14:22)
[2017-09-07 04:00] VITALS: BP 107/69; PULSE 60; RESP 18; TEMP 98.5; O2SAT 98
[2017-09-07 08:00] VITALS: BP 112/63; PULSE 52; RESP 17; TEMP 96.8; O2SAT 99
[2017-09-07] MEDS: SODIUM CHLORIDE 0.9% FLUSH 10 ML FLUSH IV FLUSH SCH (09:00)
[2017-09-07] MEDS: SODIUM CHLOR 0.9% 1000 ML INJ 1,000 ML IV SCH (09:03)
--- NOTE | 2017-09-07 10:21 | HHI.PR ---
Subjective Remarks Follow up appendicitis. Patient states that his pain is improving. Tolerating clear liquids. No other complaints at this time. Objective Vitals Vital Signs Date Time Temp Pulse Resp B/P (MAP) Pulse Ox O2 Delivery O2 Flow Rate FiO2 09/07/17 08:00 96.8 52 17 112/63 (79) 99 09/07/17 04:00 98.5 60 18 107/69 (82) 98 09/07/17 00:00 98.5 52 20 103/61 (75) 100 09/06/17 20:00 98.1 65 20 107/67 (80) 100 09/06/17 16:00 98.5 65 19 104/60 (75) 100 09/06/17 12:00 97.8 68 18 105/59 (74) 99 I/O 09/06/17 09/06/17 09/06/17 09/07/17 09/07/17 09/07/17 07:00 15:00 23:00 07:00 15:00 23:00 Intake Total 0 ml 300 ml 480 ml Balance 0 ml 300 ml 480 ml Intake Oral 0 ml 300 ml 480 ml # Voids 0 3 4 # Bowel Movements 0 Result Diagram: 09/06/17 0807 09/06/17 0807 Imaging Last Impressions Abdomen/Pelvis CT 09/04/17 0000 Signed Impressions: Service Date/Time: Monday, September 04, 2017 19:58 - CONCLUSION: 1. Markedly abnormal inflammatory change in the right lower quadrant associated with a 4 cm abscess/phlegmonous mass and associated thickening and inflammatory change around the cecum and terminal ileum. Differential diagnosis includes a appendicitis with appendiceal abscess or possibly localized perforation versus complicated distal terminal ileum Crohn's disease and associated abscess. I would favor perforated appendicitis. Rico Gonzales MD Objective Remarks General: No acute distress. Sitting up in a chair. Heart: Regular rate and rhythm. No murmur. Lungs: Clear to auscultation bilaterally. No wheezes, rales, or rhonchi. Breathing is nonlabored. Abdomen: Soft, nontender, nondistended. Extremities: No lower extremity edema. Psych: Alert and oriented. Procedures None Urinary Catheter: No Vascular Central Line Catheter: No A/P Problem List: (1) Acute appendicitis with perforation and peritoneal abscess ICD Code: K35.3 - Acute appendicitis with localized peritonitis Status: Acute Assessment and Plan 1. Acute appendicitis with perforation and abscess: Continue IV antibiotics. Vital signs are stable. Patient is afebrile. Interventional radiology has been consulted for drainage of the abscess, but there was not enough fluid to drain. Appreciate general surgery recommendations. Clear liquid diet. 2. DVT prophylaxis: CLAUDE Roy. Avoid chemical prophylaxis in anticipation of possible surgical intervention. Discharge Planning When cleared by general surgery. Andi Navas MD Sep 07, 2017 10:21
[2017-09-07 12:00] VITALS: BP 116/52; PULSE 53; RESP 17; TEMP 97.3; O2SAT 99
[2017-09-07] MEDS ORDERED: METR1TAB76 PO (12:56)
[2017-09-07] MEDS ORDERED: LEVO750T3 PO (12:56)
--- NOTE | 2017-09-07 12:58 | HHI.PR ---
Subjective Subjective Notes He feels much better today. Had a BM this afternoon. Tolerating clears and wants more food. Objective Vitals/I&O Vital Signs Date Time Temp Pulse Resp B/P (MAP) Pulse Ox O2 Delivery O2 Flow Rate FiO2 09/07/17 12:00 97.3 53 17 116/52 (73) 99 09/05/17 13:38 Room Air Narrative Exam NAD, sitting up in chair Abd: moderate RLQ ttp, fullness. Otherwise soft ntd A/P Assessment and Plan 22 yo M with abscess likely periappendiceal. Continues to improve. Pain is much better. + BM. Ok for d/c home today with PO levaquin/flagyl if tolerates soft diet for lunch. F/u with me in 10 days. Call for fever, worsening pain. Have soft diet/low residue at home. Bruce Victoria MD Sep 07, 2017 12:58
--- NOTE | 2017-09-07 14:23 | HHI.DCPOC ---
Discharge Care Plan Diagnosis: (1) Acute appendicitis with perforation and peritoneal abscess Goals to Promote Your Health * To prevent worsening of your condition and complications * To maintain your health at the optimal level Directions to Meet Your Goals Take your medications as prescribed Follow your dietary instruction Follow activity as directed Keep your appointments as scheduled Take your immunizations and boosters as scheduled If your symptoms worsen call your PCP, if no PCP go to Urgent Care Center or Emergency Room Smoking is Dangerous to Your Health. Avoid second hand smoke Call the 24-hour hour crisis hotline for domestic abuse at Andi Navas MD Sep 07, 2017 14:23
[2017-09-07 16:00] VITALS: BP 107/68; PULSE 51; RESP 17; TEMP 97.7; O2SAT 100
== END 2017-09-07 18:06 | disposition home or self-care (01) | DRG 373 ==
LOC: NED 12:52 → NEDA 21:35 → NEDH 09-05 01:23 → N07A 09-05 17:16
PROVIDERS: ADMIT Family Medicine; ATTEND Family Medicine
DX: K35.3 Acute appendicitis with localized peritonitis (principal)
CPT/HCPCS: 74177; 80048; 80053; 81001; 83690; 85025; 96361; 96374; 96375; J1885; J2270; J2405; J2543; J7030; Q9963; Q9967